=== PATIENT | female | born 1950 | race Caucasian/White ===

== ENCOUNTER 2018-06-16 14:33 | Observation (INO) ==
[2018-06-16] MEDS ORDERED: Sodium Chlor 0.9% Inj 500 ML IV.SIG ONE (15:34)
--- NOTE | 2018-06-16 16:17 | ED ---
HPI General Chief Complaint: Chest Pain Stated Complaint: Chest Pain Time Seen by Provider: 06/16/18 15:34 Source: patient and EMS Mode of arrival: EMS Limitations: no limitations History of Present Illness HPI narrative: Patient is a 67-year-old female presented to [facility] for evaluation of chest pain. Patient states it started last night. Chest pain started at rest, she went to her neighbor's house and snorted a line of cocaine however she initially thought she was snorting aspirin. She stated that her neighbors told her it would make her feel better. Patient also reports nausea, vomiting and diarrhea. She states that she has had 4 episodes of loose stools today and is vomited twice. Patient states the chest pain is midsternal with radiation across the chest wall, there is no radiation to her arm or jaw. Patient was drinking alcohol yesterday, she denies daily alcohol use. She denies any illicit drug use, but did use drugs when she was younger. Past medical history is significant for HIV, she reports compliance with medications. MD complaint: chest pain Complete Quality Measures for STEMI Alert Patients STEMI Alert: No Onset (ago): day(s) (1) Duration: constant Onset: during rest Pain location: substernal Severity: moderate Quality: tightness Relieving factors: nothing Exacerbating factors: nothing Associated symptoms: nausea and vomiting Treatments prior to arrival chest pain: aspirin (324mg ) Related Data Home Medications Medication Instructions Recorded Confirmed baclofen 10 mg PO BID 06/16/18 06/16/18 gfsusjrkx-xlbhcctgolhl-diduyyl 1 tab PO DAILY 06/16/18 06/16/18 [Atripla] ibuprofen 600 mg PO BID 06/16/18 06/16/18 memantine [Namenda] 5 mg PO DAILY 06/16/18 06/16/18 omeprazole 40 mg PO BID 06/16/18 06/16/18 Allergies Allergy/AdvReac Type Severity Reaction Status Date / Time No Known Allergies Allergy Verified 06/16/18 16:18 Review of Systems ROS: all other systems reviewed are negative PMFSH History History Provided By: Patient Medical History Medical History Anemia (Acute) Dementia (Acute) GERD (gastroesophageal reflux disease) (Acute) Pneumonia, bacterial (Acute) HIV (human immunodeficiency virus infection) (Chronic) Surgical History Surgical History H/O knee surgery (Acute) Social History Social History Substance History: Past History Second Hand Smoke Exposure: Yes Smoking Status: Current every day smoker Tobacco Type: Cigarettes How Often Do You Have a Drink Containing Alcohol: 2 to 3 times a week Recent Travel in [facility] within the Last 8 Weeks: No Recent Out of Country Travel within the Last 8 Weeks: No Exam Narrative Exam Narrative: GENERAL: Well-developed, well-nourished, alert female. Presenting in no acute distress. SKIN: Focused skin assessment warm/dry. HEAD: Atraumatic. Normocephalic. EYES: Pupils equal and round. No scleral icterus. No injection or drainage. ENT: No nasal bleeding or discharge. Mucous membranes pink and moist. NECK: Trachea midline. No JVD. CARDIOVASCULAR: Regular rate and rhythm. 2/6 systolic murmur appreciated. RESPIRATORY: No accessory muscle use. Clear to auscultation. Breath sounds equal bilaterally. GASTROINTESTINAL: Abdomen soft, non-tender, nondistended. Hepatic and splenic margins not palpable. MUSCULOSKELETAL: No obvious deformities. No clubbing. No cyanosis. No edema. NEUROLOGICAL: Awake and alert. No obvious cranial nerve deficits. Motor grossly within normal limits. Normal speech. PSYCHIATRIC: Appropriate mood and affect; insight and judgment normal. Course Initial Documented Vital Signs Temperature 98.7 F 06/16/18 15:32 Pulse Rate 72 06/16/18 15:32 Respiratory Rate 18 06/16/18 15:32 Blood Pressure 128/88 06/16/18 15:32 Pulse Oximetry 97 06/16/18 15:32 Last Documented Vital Signs Temperature 98.7 F 06/16/18 15:32 Pulse Rate 72 06/16/18 15:32 Respiratory Rate 18 06/16/18 15:32 Blood Pressure 128/88 06/16/18 15:32 Pulse Oximetry 97 06/16/18 15:32 Medical Decision Making MDM Narrative Medical decision making narrative: Patient is 67-year-old female presenting to [facility] from for evaluation of chest pain. Patient's vital signs are stable, labs imaging ordered and pending. Patient was given aspirin in route, Nitropaste placed on patient's chest. Labs reviewed. CBC with a hemoglobin of 8.2, this is decreased when compared to prior in 2013. Hemoccult was negative. Patient was reassessed is resting comfortably. Patient will be placed the chest pain center for further evaluation. Plan of care discussed with my attending physician. Medical Screen Exam Complete: Yes Emergency Medical Condition: Yes Differential Diagnosis Differential Diagnosis: ACS vs USA vs substance abuse vs metabolic abnormality vs arrhythmia versus other Medical Records Medical records reviewed: Yes I reviewed the patient's medical records. Lab Data Lab results reviewed: Yes I reviewed the patient's lab results. Result diagrams: 06/16/18 15:35 06/16/18 15:35 Lab Results 06/16/18 06/16/18 06/16/18 Range/Units 15:35 15:35 15:35 WBC 5.3 (4.0-11.0) th/mm3 RBC 3.33 L (4.00-5.30) mil/mm3 Hgb 8.2 L (11.6-15.3) gm/dL Hct 25.8 L (35.0-46.0) % MCV 77.5 L (80.0-100.0) fL MCH 24.7 L (27.0-34.0) pg MCHC 31.8 L (32.0-36.0) % RDW 19.3 H (11.6-17.2) % Plt Count 255 (150-450) th/mm3 MPV 7.4 (7.0-11.0) fL Neut % (Auto) 63.3 (16.0-70.0) % Lymph % (Auto) 22.3 (9.0-44.0) % [place] % (Auto) 9.6 H (0.0-8.0) % Eos % (Auto) 3.9 (0.0-4.0) % Baso % (Auto) 0.9 (0.0-2.0) % Neut # (Auto) 3.4 (1.8-7.7) th/mm3 Lymph # (Auto) 1.2 (1.0-4.8) th/mm3 [place] # (Auto) 0.5 (0.0-0.9) th/mm3 Eos # (Auto) 0.2 (0.0-0.4) th/mm3 Baso # (Auto) 0.0 (0.0-0.2) th/mm3 WBC Differential . Differential Comment Auto diff final PT 10.7 (9.8-11.6) sec INR 1.1 Ratio APTT 22.0 L (24.3-30.1) sec Sodium (136-145) meq/L Potassium (3.5-5.1) meq/L Chloride (98-107) meq/L Carbon Dioxide (21.0-32.0) meq/L Anion Gap (5-15) meq/L BUN (7-18) mg/dL Creatinine (0.50-1.00) mg/dL Estimated GFR (>89) mL/min Random Glucose (74-106) mg/dL Calcium (8.5-10.1) mg/dL Magnesium (1.5-2.5) mg/dL Total Bilirubin (0.2-1.0) mg/dL AST (15-37) U/L ALT (10-53) U/L Alkaline Phosphatase (45-117) U/L Total Creatine Kinase (26-192) U/L Troponin I (0.02-0.05) ng/mL Total Protein (6.4-8.2) g/dL Albumin (3.4-5.0) g/dL Lipase 113 (73-393) U/L Serum Alcohol Less than 3 (0-5) mg/dL 06/16/18 Range/Units 15:35 WBC (4.0-11.0) th/mm3 RBC (4.00-5.30) mil/mm3 Hgb (11.6-15.3) gm/dL Hct (35.0-46.0) % MCV (80.0-100.0) fL MCH (27.0-34.0) pg MCHC (32.0-36.0) % RDW (11.6-17.2) % Plt Count (150-450) th/mm3 MPV (7.0-11.0) fL Neut % (Auto) (16.0-70.0) % Lymph % (Auto) (9.0-44.0) % [place] % (Auto) (0.0-8.0) % Eos % (Auto) (0.0-4.0) % Baso % (Auto) (0.0-2.0) % Neut # (Auto) (1.8-7.7) th/mm3 Lymph # (Auto) (1.0-4.8) th/mm3 [place] # (Auto) (0.0-0.9) th/mm3 Eos # (Auto) (0.0-0.4) th/mm3 Baso # (Auto) (0.0-0.2) th/mm3 WBC Differential Differential Comment PT (9.8-11.6) sec INR Ratio APTT (24.3-30.1) sec Sodium 141 (136-145) meq/L Potassium 3.7 (3.5-5.1) meq/L Chloride 108 H (98-107) meq/L Carbon Dioxide 22.5 (21.0-32.0) meq/L Anion Gap 11 (5-15) meq/L BUN 19 H (7-18) mg/dL Creatinine 0.80 (0.50-1.00) mg/dL Estimated GFR 71 L (>89) mL/min Random Glucose 77 (74-106) mg/dL Calcium 7.6 L (8.5-10.1) mg/dL Magnesium 1.9 (1.5-2.5) mg/dL Total Bilirubin 0.3 (0.2-1.0) mg/dL AST 18 (15-37) U/L ALT 13 (10-53) U/L Alkaline Phosphatase 46 (45-117) U/L Total Creatine Kinase 64 (26-192) U/L Troponin I Less than 0.02 L (0.02-0.05) ng/mL Total Protein 6.2 L (6.4-8.2) g/dL Albumin 2.9 L (3.4-5.0) g/dL Lipase (73-393) U/L Serum Alcohol (0-5) mg/dL Imaging Data Radiologist's impression: Chest X-Ray 06/16/18 15:35 CONCLUSION: No evidence of acute cardiopulmonary process. Retrocardiac density characteristic of a hiatal hernia. Discharge Plan Discharge Disposition Patient Disposition: 30 Still Patient Discharge Condition Condition: Stable Discharge Details Diagnosis: Atypical chest pain Physicians Team ED Provider: Jenny Gleason ED Midlevel Provider: Misty Anglin Primary Care Provider: Leroy Mayers Attending Provider: Russell Armendariz Status ED Status: Admitted Observation Patient
[2018-06-16 16:43] LABS: Baso % (Auto) 0.9 % (0.0-2.0); Eos # (Auto) 0.2 th/mm3 (0.0-0.4); Eos % (Auto) 3.9 % (0.0-4.0); Hematocrit 25.8 % (35.0-46.0); Hemoglobin 8.2 gm/dL (11.6-15.3); Lymph # (Auto) 1.2 th/mm3 (1.0-4.8); Lymph % (Auto) 22.3 % (9.0-44.0); Mean Corpuscular HGB Conc 31.8 % (32.0-36.0); Mean Corpuscular Hemoglobin 24.7 pg (27.0-34.0); Mean Corpuscular Volume 77.5 fL (80.0-100.0); Mean Platelet Volume 7.4 fL (7.0-11.0); Mono # (Auto) 0.5 th/mm3 (0.0-0.9); Mono % (Auto) 9.6 % (0.0-8.0); Neut # (Auto) 3.4 th/mm3 (1.8-7.7); Neut % (Auto) 63.3 % (16.0-70.0); Platelet Count 255 th/mm3 (150-450); Red Blood Count 3.33 mil/mm3 (4.00-5.30); Red Cell Distribution Width 19.3 % (11.6-17.2); White Blood Count 5.3 th/mm3 (4.0-11.0)
[2018-06-16 16:49] LABS: INR 1.1 Ratio; Prothrombin Time 10.7 sec (9.8-11.6)
[2018-06-16 16:59] LABS: Lipase 113 U/L (73-393)
[2018-06-16 17:03] LABS: Alanine Aminotransferase 13 U/L (10-53); Albumin 2.9 g/dL (3.4-5.0); Anion Gap 11 meq/L (5-15); Aspartate Aminotransferase 18 U/L (15-37); Blood Urea Nitrogen 19 mg/dL (7-18); Calcium 7.6 mg/dL (8.5-10.1); Carbon Dioxide 22.5 meq/L (21.0-32.0); Chloride 108 meq/L (98-107); Glomerular Filtration Rate 71 mL/min (>89); Glucose,Random 77 mg/dL (74-106); Magnesium 1.9 mg/dL (1.5-2.5); Potassium 3.7 meq/L (3.5-5.1); Sodium 141 meq/L (136-145)
[2018-06-16 17:07] LABS: Alkaline Phosphatase 46 U/L (45-117); Total Protein 6.2 g/dL (6.4-8.2)
[2018-06-16 17:25] LABS: Creatine Kinase 64 U/L (26-192)
[2018-06-16] MEDS ORDERED: Acetaminophen 500 MG Tablet PO PRN (17:29)
[2018-06-16] MEDS: Sod Chloride 0.9% Inj 1,000 ML IV.CONT SCH (17:30)
[2018-06-16 19:48] LABS: Creatine Kinase 78 U/L (26-192)
[2018-06-16 22:02] LABS: Creatine Kinase 91 U/L (26-192)
[2018-06-16] MEDS ORDERED: Aluminum/Magnesium/Simethacone Susp 30 ML UDC PO PRN (22:43)
[2018-06-17] MEDS: Sod Chloride 0.9% Inj 1,000 ML IV.CONT SCH ×2 (05:54→15:30)
[2018-06-17 09:30] LABS: Baso # (Auto) 0.1 th/mm3 (0.0-0.2); Baso % (Auto) 1.3 % (0.0-2.0); Eos # (Auto) 0.3 th/mm3 (0.0-0.4); Eos % (Auto) 8.4 % (0.0-4.0); Hematocrit 23.2 % (35.0-46.0); Hemoglobin 7.5 gm/dL (11.6-15.3); Lymph # (Auto) 0.9 th/mm3 (1.0-4.8); Lymph % (Auto) 23.4 % (9.0-44.0); Mean Corpuscular HGB Conc 32.1 % (32.0-36.0); Mean Corpuscular Hemoglobin 24.2 pg (27.0-34.0); Mean Corpuscular Volume 75.4 fL (80.0-100.0); Mean Platelet Volume 7.5 fL (7.0-11.0); Mono # (Auto) 0.4 th/mm3 (0.0-0.9); Neut # (Auto) 2.2 th/mm3 (1.8-7.7); Neut % (Auto) 55.9 % (16.0-70.0); Platelet Count 232 th/mm3 (150-450); Red Blood Count 3.08 mil/mm3 (4.00-5.30); Red Cell Distribution Width 19.3 % (11.6-17.2); White Blood Count 3.9 th/mm3 (4.0-11.0)
[2018-06-17 10:04] LABS: Baso % (Auto) 1.1 % (0.0-2.0); Eos # (Auto) 0.3 th/mm3 (0.0-0.4); Eos % (Auto) 8.4 % (0.0-4.0); Hematocrit 24.4 % (35.0-46.0); Hemoglobin 7.9 gm/dL (11.6-15.3); Lymph # (Auto) 0.9 th/mm3 (1.0-4.8); Lymph % (Auto) 22.2 % (9.0-44.0); Mean Corpuscular HGB Conc 32.5 % (32.0-36.0); Mean Corpuscular Hemoglobin 24.3 pg (27.0-34.0); Mean Corpuscular Volume 74.7 fL (80.0-100.0); Mean Platelet Volume 7.5 fL (7.0-11.0); Mono # (Auto) 0.4 th/mm3 (0.0-0.9); Mono % (Auto) 10.3 % (0.0-8.0); Neut # (Auto) 2.4 th/mm3 (1.8-7.7); Platelet Count 241 th/mm3 (150-450); Red Blood Count 3.27 mil/mm3 (4.00-5.30); Red Cell Distribution Width 19.3 % (11.6-17.2); White Blood Count 4.1 th/mm3 (4.0-11.0)
[2018-06-17] MEDS ORDERED: Regadenoson Inj 0.4 MG/5 ML Syringe IV.PUSH ONE (10:20)
--- NOTE | 2018-06-17 13:56 | ECG ---
Date Performed: 06/16/2018 Time Performed: 19:02:36 PTAGE: 67 years EKG: Sinus rhythm WITH SINUS ARRHYTHMIA PROLONGED QT INTERVAL ABNORMAL ECG Anteroseptal ND, age undetermined but large ly unchanged from prior tracing PREVIOUS TRACING : 06/16/2018 15.32 DOCTOR: Ramesh Siddiqui Interpretating Date/Time 06/17/2018 13:55:05
[2018-06-17 15:50] LABS: % Iron Saturation 3.8 % (20-50)
[2018-06-17] MEDS ORDERED: PEG 3350/E-Lyte Soln 4000 ML Bottle PO ONE (16:00)
--- NOTE | 2018-06-17 16:53 | ECG ---
Date Performed: 06/16/2018 Time Performed: 22:04:46 PTAGE: 67 years EKG: Sinus rhythm POSSIBLE LEFT ATRIAL ENLARGEMENT SEPTAL MYOCARDIAL INFARCTION ABNORMAL ECG Since PREVIOUS TRACING , no significant change noted PREVIOUS TRACIN06/16/2018 19.02 DOCTOR: Gina Jose Interpretating Date/Time 06/17/2018 16:50:47
--- NOTE | 2018-06-17 16:54 | ECG ---
Date Performed: 06/16/2018 Time Performed: 15:32:36 PTAGE: 67 years EKG: Sinus rhythm SEPTAL MYOCARDIAL INFARCTION ABNORMAL ECG Since PREVIOUS TRACING , no significant change noted PREVIOUS TRACIN09/23/2014 10.13 DOCTOR: Gina Jose Interpretating Date/Time 06/17/2018 16:51:52
[2018-06-18] MEDS: Sod Chloride 0.9% Inj 1,000 ML IV.CONT SCH ×3 (00:26→18:29)
[2018-06-19] MEDS: Sod Chloride 0.9% Inj 1,000 ML IV.CONT SCH (06:51)
[2018-06-19 07:36] LABS: Baso % (Auto) 1.3 % (0.0-2.0); Eos # (Auto) 0.4 th/mm3 (0.0-0.4); Eos % (Auto) 11.9 % (0.0-4.0); Hematocrit 28.3 % (35.0-46.0); Hemoglobin 8.9 gm/dL (11.6-15.3); Lymph # (Auto) 1.1 th/mm3 (1.0-4.8); Lymph % (Auto) 33.6 % (9.0-44.0); Mean Corpuscular HGB Conc 31.5 % (32.0-36.0); Mean Corpuscular Hemoglobin 24.3 pg (27.0-34.0); Mean Platelet Volume 7.5 fL (7.0-11.0); Mono # (Auto) 0.4 th/mm3 (0.0-0.9); Mono % (Auto) 12.6 % (0.0-8.0); Neut # (Auto) 1.3 th/mm3 (1.8-7.7); Neut % (Auto) 40.6 % (16.0-70.0); Platelet Count 244 th/mm3 (150-450); Red Blood Count 3.67 mil/mm3 (4.00-5.30); Red Cell Distribution Width 19.2 % (11.6-17.2); White Blood Count 3.2 th/mm3 (4.0-11.0)
[2018-06-19 07:55] LABS: Calcium 8.3 mg/dL (8.5-10.1); Carbon Dioxide 28.4 meq/L (21.0-32.0); Potassium 4.1 meq/L (3.5-5.1)
== END 2018-06-19 12:55 | disposition home or self-care (01) ==
LOC: NEPE 14:33 → NEDA 14:33 → NEPFCDU 20:16
PROVIDERS: ADMIT Hospitalist; ATTEND Hospitalist
PROC: PANENDO (2018-06-18 11:40)
PROC: COLONOS (2018-06-18 11:40)